=== PATIENT | female | born 1990 | race Caucasian/White ===

== ENCOUNTER 2016-11-26 20:10 | Emergency (ER) | payer OTHER, BC ==
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
[2016-11-26 20:20] VITALS: BP 132/75; PULSE 88; TEMP 98
[2016-11-26] MEDS ORDERED: NAPROXEN 500 MG TABLET (FP) PO ONE (20:20)
[2016-11-26] MEDS ORDERED: NAPROXEN 500 MG TABLET (FP) ONE (20:22)
== END 2016-11-26 20:33 | disposition home or self-care (01) ==
LOC: FER 20:10
DX: S16.1XXA Strain of muscle, fascia and tendon at neck level, initial encounter (principal); S39.012A Strain of muscle, fascia and tendon of lower back, initial encounter; V43.52XA Car driver injured in collision with other type car in traffic accident, initial encounter; Y93.89 Activity, other specified; Y92.410 Unspecified street and highway as the place of occurrence of the external cause
CPT/HCPCS: 99282-25

== ENCOUNTER 2022-04-07 17:26 | Inpatient (IN) | payer BC ==
[2022-04-07 18:21] LABS: EOS % 0.4 % (0-4.5); HEMATOCRIT 34.5 % (32.4-45.2); HEMOGLOBIN 11.1 GM/dL (10.7-15.3); LYMPH % 5.7 % (8-40); MCH 26.4 pg (25.7-33.7); MCHC 32.3 g/dl (32.0-36.0); MEAN CELL VOLUME 81.6 fl (80-96); MEAN PLT VOLUME 8.7 fl (7.5-11.1); MONO % 5.6 % (3.8-10.2); NEUT % 86.3 % (42.8-82.8); PLATELET COUNT 273 10^3/uL (134-434); RBC 4.22 M/mm3 (3.60-5.2); RDW 13.5 % (11.6-15.6); WHITE BLOOD COUNT 16.7 K/mm3 (4.0-10.0)
[2022-04-07] MEDS ORDERED: SODIUM CHLORIDE 1,000 ML IV STA (18:23)
[2022-04-07 18:25] LABS: EPI CELLS >36 /uL (0-25.1); HYALINE CASTS 1 /uL (0-3.1); PH,URINE 8.5 (5.0-8.0); URINE APPEARANCE CLEAR; URINE BACTERIA 885 /uL (0-1359); URINE BILIRUBIN 1+ (NEGATIVE); URINE COLOR DK YELLOW; URINE GLUCOSE (UA) NEGATIVE (NEGATIVE); URINE KETONE 4+ (NEGATIVE); URINE LEUK ESTERASE TRACE (NEGATIVE); URINE NITRITE NEGATIVE (NEGATIVE); URINE PROTEIN 1+ (NEGATIVE); URINE RBC 31 /uL (0-23.9); URINE WBC 18 /uL (0-25.8)
[2022-04-07 18:36] LABS: CALCIUM 8.2 mg/dL (8.5-10.1)
[2022-04-07 18:37] LABS: ALBUMIN 2.5 g/dl (3.4-5.0); BLOOD UREA NITROGEN 7.7 mg/dL (7-18)
[2022-04-07 18:38] VITALS: BMI 24.0
[2022-04-07 18:38] LABS: MAGNESIUM 1.6 mg/dL (1.8-2.4)
[2022-04-07] MEDS ORDERED: ONDANSETRON 4 MG/2 ML VIAL IVPUSH ONE (18:38)
[2022-04-07] MEDS ORDERED: FAMOTIDINE 20 MG/50 ML IVPB 20 MG/50 ML MG IVPB ONE ×2 (18:39→18:41)
[2022-04-07 18:40] LABS: CREATININE 0.5 mg/dL (0.55-1.3)
[2022-04-07] MEDS ORDERED: ONDANSETRON 4 MG/2 ML VIAL ONE (18:40)
[2022-04-07] MEDS ORDERED: MAGNESIUM SULF 50% (8.12 MEQ/2 ML-1 GM VIAL) IVPB ONE (18:41)
[2022-04-07 18:42] LABS: BILIRUBIN,TOTAL 0.7 mg/dL (0.2-1); TOT PROT 5.9 g/dl (6.4-8.2)
[2022-04-07] MEDS ORDERED: MAGNESIUM 1GM/D5W - 1 GM/100 ML IVPB IVPB ONE (19:37)
[2022-04-07 20:00] LABS: ANISOCYTOSIS 0; MACROCYTOSIS 0
[2022-04-07 21:57] LABS: URINE APPEARANCE CLEAR; URINE BILIRUBIN NEGATIVE (NEGATIVE); URINE COLOR DK YELLOW; URINE GLUCOSE (UA) NEGATIVE (NEGATIVE); URINE KETONE 4+ (NEGATIVE); URINE LEUK ESTERASE NEGATIVE (NEGATIVE); URINE NITRITE NEGATIVE (NEGATIVE); URINE PROTEIN TRACE (NEGATIVE)
[2022-04-07] MEDS ORDERED: DEXTROSE 5%-NORMAL SALINE 1,000 ML IV ONE (22:02)
[2022-04-07] MEDS ORDERED: ONDANSETRON 4 MG/2 ML VIAL IVPB PRN (23:20)
[2022-04-07] MEDS ORDERED: PROCHLORPERAZINE INJECTION 10 MG/2 ML VIAL IVPB ONE (23:21)
[2022-04-07] MEDS ORDERED: ACETAMINOPHEN 1000 MG/100 ML BAG IVPB PRN (23:26)
[2022-04-08] MEDS: DEXTROSE 5%-LACTATED RINGERS 1,000 ML IV SCH ×2 (01:39→08:10)
[2022-04-08 09:49] LABS: BASO % 0.4 % (0-2.0); EOS % 0.1 % (0-4.5); HEMATOCRIT 29.3 % (32.4-45.2); HEMOGLOBIN 9.9 GM/dL (10.7-15.3); LYMPH % 6.5 % (8-40); MCH 27.5 pg (25.7-33.7); MCHC 33.9 g/dl (32.0-36.0); MEAN CELL VOLUME 81.3 fl (80-96); MEAN PLT VOLUME 8.6 fl (7.5-11.1); MONO % 13.8 % (3.8-10.2); NEUT % 79.2 % (42.8-82.8); PLATELET COUNT 240 10^3/uL (134-434); RBC 3.61 M/mm3 (3.60-5.2); RDW 13.1 % (11.6-15.6); WHITE BLOOD COUNT 12.6 K/mm3 (4.0-10.0)
[2022-04-08 10:12] LABS: CALCIUM 8.1 mg/dL (8.5-10.1)
[2022-04-08 10:13] LABS: ALBUMIN 2.4 g/dl (3.4-5.0)
[2022-04-08 10:16] LABS: CREATININE 0.6 mg/dL (0.55-1.3)
[2022-04-08 10:18] LABS: TOT PROT 5.6 g/dl (6.4-8.2)
[2022-04-08 12:34] VITALS: RESP 18
[2022-04-08 15:04] VITALS: BP 100/67; PULSE 91; TEMP 98
== END 2022-04-08 15:20 | disposition home or self-care (01) | DRG 833 ==
LOC: JER 17:26 → JERBED 22:01 → JLDR 04-08 → J3W 04-08 02:13
PROVIDERS: ADMIT Obstetrics & Gynecology; ATTEND Obstetrics & Gynecology
DX: O26.893 Other specified pregnancy related conditions, third trimester (principal); Z3A.34 34 weeks gestation of pregnancy; K52.9 Noninfective gastroenteritis and colitis, unspecified; E86.0 Dehydration
CPT/HCPCS: 0241U-QW; 36415; 76705-TC; 80053; 81003; 83690; 83735; 85025; 86850; 86900; 86901; 87086; 99285-25

== ENCOUNTER 2022-05-03 07:25 | Inpatient (IN) | payer BC ==
[2022-05-03] MEDS ORDERED: BUTORPHANOL TARTRATE 2 MG/ML VIAL IVPB ONE (09:05)
[2022-05-03] MEDS ORDERED: PROMETHAZINE HCL 25 MG/1 ML VIAL IVPB ONE (09:05)
[2022-05-03] MEDS ORDERED: OXYTOCIN 30 UNITS in 0.9% NS 30 UNIT/500 ML INFUS.BAG IVPB ONE (09:13)
[2022-05-03] MEDS ORDERED: OXYTOCIN 30 UNITS in 0.9% NS 30 UNIT/500 ML INFUS.BAG IVPB SCH (09:15)
[2022-05-03] MEDS ORDERED: ELECTROLYTE-148 SOLN 1,000 ML IV SCH (09:15)
[2022-05-03 09:45] VITALS: BMI 25.4
[2022-05-03 09:55] LABS: BASO % 0.6 % (0-2.0); EOS % 0.9 % (0-4.5); HEMATOCRIT 31.3 % (32.4-45.2); HEMOGLOBIN 10.1 GM/dL (10.7-15.3); LYMPH % 17.7 % (8-40); MCHC 32.2 g/dl (32.0-36.0); MEAN CELL VOLUME 77.5 fl (80-96); MEAN PLT VOLUME 8.8 fl (7.5-11.1); MONO % 13.6 % (3.8-10.2); NEUT % 67.2 % (42.8-82.8); PLATELET COUNT 315 10^3/uL (134-434); RBC 4.03 M/mm3 (3.60-5.2); RDW 14.8 % (11.6-15.6); WHITE BLOOD COUNT 11.6 K/mm3 (4.0-10.0)
[2022-05-03 10:08] LABS: INR 0.92 (0.83-1.09); PROTHROMBIN TIME (PATIENT) 10.6 SEC (9.7-13.0)
[2022-05-03 10:10] LABS: ACTIVATED PTT 25.5 SECONDS (25.2-36.5)
[2022-05-03 10:14] LABS: CALCIUM 8.9 mg/dL (8.5-10.1)
[2022-05-03 10:15] LABS: BLOOD UREA NITROGEN 8.4 mg/dL (7-18)
[2022-05-03 10:18] LABS: CREATININE 0.6 mg/dL (0.55-1.3)
[2022-05-03] MEDS ORDERED: FENTANYL/BUPIVACAINE/NS/PF - PCEA - 50 ML DISP.SYRIN EP ONE ×2 (14:03→18:07)
[2022-05-03] MEDS ORDERED: FENTANYL CITRATE/PF 50 MCG/ML VIAL ONE (14:16)
[2022-05-03] MEDS ORDERED: NALOXONE HCL 0.4 MG/ML VIAL IVPUSH PRN (14:50)
[2022-05-03] MEDS ORDERED: FENTANYL/BUPIVACAINE/NS/PF - PCEA - 50 ML DISP.SYRIN EP SCH (15:00)
[2022-05-03] MEDS ORDERED: LIDOCAINE HCL 1% PRESERVATIVE FREE - 30ML VIAL ONE (18:15)
[2022-05-03] MEDS ORDERED: OXYTOCIN 20 UNITS in 0.9% NS 20 UNIT/1,000 ML INFUS.BAG IV ONE (18:15)
[2022-05-03 18:47] LABS: CORD HCO3 22.3 mmHg (20-29); CORD PCO2 40.7 mmHg (30-78); CORD pH 7.357 (7.14-7.44)
[2022-05-03 18:51] LABS: CORD HCO3 25.2 mmHg (20-29); CORD PCO2 54.7 mmHg (30-78); CORD pH 7.282 (7.14-7.44)
[2022-05-03] MEDS ORDERED: BENZOCAINE 28 GM HEMORRHOIDAL OINTMENT TP PRN (19:02)
[2022-05-03] MEDS ORDERED: BENZOCAINE 20% 57 GM BOTTLE TP PRN (19:02)
[2022-05-03] MEDS ORDERED: ACETAMINOPHEN 325 MG TABLET (FP) PO PRN (19:02)
[2022-05-03] MEDS ORDERED: WITCH HAZEL 50% (TUCKS) 40 PAD/JAR PAD TP PRN (19:02)
[2022-05-03] MEDS ORDERED: BISACODYL 10 MG SUPP.RECT RC PRN (19:02)
[2022-05-03] MEDS ORDERED: METHYLERGONOVINE MALEATE 0.2 MG/1 ML AMP IM PRN (19:02)
[2022-05-03] MEDS ORDERED: OXYTOCIN 20 UNITS in 0.9% NS 20 UNIT/1,000 ML INFUS.BAG IV SCH (19:15)
[2022-05-04] MEDS: IBUPROFEN 600 MG TABLET (FP) PO PRN ×3 (01:30→22:53)
[2022-05-04 08:12] LABS: HEMATOCRIT 31.6 % (32.4-45.2); MCH 24.5 pg (25.7-33.7); MCHC 31.6 g/dl (32.0-36.0); MEAN CELL VOLUME 77.5 fl (80-96); MEAN PLT VOLUME 8.9 fl (7.5-11.1); PLATELET COUNT 267 10^3/uL (134-434); RBC 4.08 M/mm3 (3.60-5.2); RDW 15.2 % (11.6-15.6); WHITE BLOOD COUNT 21.2 K/mm3 (4.0-10.0)
[2022-05-04 09:08] LABS: ANISOCYTOSIS 1+; MACROCYTOSIS 0
[2022-05-04] MEDS ORDERED: SENNOSIDES/DOCUSATE COMBO (SENNA PLUS) TABLET (UD) PO PRN (22:00)
[2022-05-04 23:15] VITALS: TEMP 98.2
[2022-05-05 09:18] LABS: BASO % 0.7 % (0-2.0); EOS % 0.7 % (0-4.5); HEMOGLOBIN 10.1 GM/dL (10.7-15.3); MCH 24.6 pg (25.7-33.7); MCHC 31.6 g/dl (32.0-36.0); MEAN CELL VOLUME 77.7 fl (80-96); MEAN PLT VOLUME 8.2 fl (7.5-11.1); MONO % 11.1 % (3.8-10.2); NEUT % 72.5 % (42.8-82.8); PLATELET COUNT 325 10^3/uL (134-434); RBC 4.12 M/mm3 (3.60-5.2); WHITE BLOOD COUNT 15.5 K/mm3 (4.0-10.0)
[2022-05-05 09:48] LABS: SGOT/AST 23 U/L (15-37)
[2022-05-05 09:49] LABS: SGPT/ALT 18 U/L (13-61)
[2022-05-05 11:24] VITALS: BP 126/85; PULSE 72; RESP 16
== END 2022-05-05 12:15 | disposition home or self-care (01) | DRG 807 ==
LOC: JLDR 07:25 → J3W 21:59
PROVIDERS: ADMIT Obstetrics & Gynecology; ATTEND Obstetrics & Gynecology
PROC: 10E0XZZ Delivery of Products of Conception, External Approach (ICD-10-PCS; principal; 2022-05-03)
PROC: 0W8NXZZ Division of Female Perineum, External Approach (ICD-10-PCS; 2022-05-03)
PROC: 0U7C7ZZ Dilation of Cervix, Via Natural or Artificial Opening (ICD-10-PCS; 2022-05-03)
DX: O26.613 Liver and biliary tract disorders in pregnancy, third trimester (principal); Z37.0 Single live birth; O69.81X0 Labor and delivery complicated by cord around neck, without compression, not applicable or unspecified; Z3A.37 37 weeks gestation of pregnancy; O70.0 First degree perineal laceration during delivery
CPT/HCPCS: 36415; 36600; 59409; 80048; 82803; 84450; 84460; 85025; 85610; 85730; 86780; 86850; 86900; 86901; 88307-TC; C9803-CS; U0003; U0005